=== PATIENT | female | born 1945 | race Caucasian/White ===

== ENCOUNTER → 2018-01-10 | Outpatient (CLI) | payer MEDICARE, OTHER ==
[2018-01-10 10:22] LABS: CARBON DIOXIDE 34.8 mmol/L (20.0-32)
--- NOTE | 2018-01-10 10:32 | DIREP ---
PROCEDURE:US ABDOMEN LIMITED(SINGLE ORGAN-QUAD) COMPARISON:[facility], [place], ABDOMEN SINGLE ORGAN, 11/14/2012, 11:39 AM. INDICATIONS:R94.5 ABN RESULTS OF LIVER FUNCTION STUDIES FINDINGS: CBD:1.0 cm RIGHT KIDNEY:10.6 x 4.6 x 4.5 cm SPLEEN:12.2 x 5.5 x 12.2 cm PANCREAS:The pancreas is largely obscured by bowel gas shadowing. LIVER:Diffuse increased echogenicity. No focal hepatic lesion is identified. Normal directional flow in the portal vein. GALLBLADDER:The gallbladder is surgically absent. BILIARY:There is no biliary ductal dilatation. RIGHT KIDNEY:Normal. No hydronephrosis. SPLEEN:Normal. OTHER:Negative. No ascites is identified. CONCLUSION:Prior cholecystectomy. Probable fatty liver. No other significant findings. Dictated by: VALA Physician on 01/10/2018 at 10:24 AM ld
--- NOTE | 2018-01-10 11:41 | DIREP ---
PROCEDURE:XR ABDOMEN 2 VIEWS COMPARISON:None. INDICATIONS:R10.30 LOWER ABD PAIN TECHNIQUE:Flat and upright views of the abdomen are provided. FINDINGS: BOWEL GAS PATTERN:Relatively mild mixed stool and gas throughout the colon. No dilated loops of small bowel are identified. CALCIFICATIONS:No suspicious calcifications appreciated. LUNG BASES:Grossly clear. BONES:Degenerative changes of the spine. No acute abnormality. OTHER:Apparent previous cholecystectomy. CONCLUSION: 1. Nonspecific nonobstructive bowel gas pattern. No abnormal increased fecal burden appreciated. 2. No suspicious calcifications identified. Dictated by: James Wilson M.D. On 01/10/2018 at 11:37 AM
[2018-01-11 11:20] LABS: HEP A AB, IgM Negative (Negative)
== END | disposition home or self-care (01) ==
LOC: RAD 09:39
PROVIDERS: ATTEND Nurse Practitioner Family
DX: R10.30 Lower abdominal pain, unspecified (principal); R94.5 Abnormal results of liver function studies; N18.3 Chronic kidney disease, stage 3 (moderate); M47.899 Other spondylosis, site unspecified; Z90.49 Acquired absence of other specified parts of digestive tract
CPT/HCPCS: 36415; 74019; 76705; 80053; 80074; 80076; 86318; 86592

== ENCOUNTER 2019-01-21 06:06 | Day surgery (SDC) | payer MEDICARE, OTHER ==
[2019-01-20 16:43] VITALS: BP 141/75
--- NOTE | 2019-01-20 17:40 | DIREP ---
PROCEDURE:CHEST 2 VIEWS COMPARISON:None. INDICATIONS:PRE OP HEART CATH FINDINGS: LUNGS/PLEURA:Hyperinflation and chronic interstitial changes. No infiltrate or pleural effusion. CARDIAC:Normal cardiac silhouette and normal pulmonary vascularity. Aortic arch calcifications. MEDIASTINUM:Normal. BONES:Bridging lower anterior thoracic osteophytes. OTHER:No additional findings. CONCLUSION:COPD. No acute cardiopulmonary process. Dictated by: Nicole Flores MD on 01/20/2019 at 05:38 PM
[2019-01-21] VITALS (12 sets, daily range): BP systolic 112–178; BP diastolic 52–98
[~2019-01-21] VITALS: Ht 175.3 cm; Wt 83.0 kg
[~2019-01-21 06:06] MED LIST: ACET-685 PO; AMLO5TAB10 PO; ASCO500C PO; ASPI325T14 PO; CALC-167 PO; GABA300C10 PO; GLUC1TAB90 PO; IBAN150T20 PO; LEVO50TA6 PO; LOSA50TA14 PO; METO25TA4 PO; NS 1000ML 1,000 ML ONE; PRAV40TA2 PO; SERT100T PO; VITA400C37 PO
[2019-01-21] MEDS ORDERED: MIDAZOLAM HCL 1 MG/ML VIAL ONE (06:10)
[2019-01-21] MEDS ORDERED: NS 1000ML 1,000 ML ONE (06:10)
[2019-01-21] MEDS ORDERED: SUBLIMAZE ONE (06:10)
[2019-01-21] MEDS ORDERED: HEPARIN ONE (06:10)
[2019-01-21] MEDS ORDERED: XYLOCAINE ONE (06:11)
[2019-01-21] MEDS ORDERED: PHENERGAN ONE (06:13)
[2019-01-21] MEDS ORDERED: VALIUM ONE (06:14)
[2019-01-21] MEDS: PHENERGAN PO ONE (06:16)
[2019-01-21] MEDS: VALIUM PO ONE (06:17)
[2019-01-21] MEDS: NS 1000ML 1,000 ML IV SCH (06:17)
[2019-01-21] MEDS ORDERED: ROSU10TA2 PO (08:58)
--- NOTE | 2019-01-21 12:05 | [facility] ---
DATE OF SERVICE: 01/21/2019 HEART CATH REPORT PRIMARY PHYSICIAN: Dr. Cyndi Betts. PRECATHETERIZATION DIAGNOSES: Abnormal myocardial perfusion scan with LV dilatation and 45-46% ejection fraction with no evidence of any definite hypoperfusion with history of angina, hypertension, hypertensive heart disease, on multiple [ ] hypertension. POSTCATHETERIZATION DIAGNOSES: Post cath diagnosis, left main fair size vessel, fully patent. LAD is a type 3 vessel with proximal long segment of tubular 60-65% stenosis. The first septal electronic assembler group leader has an ostial 70-80% stenosis and mid and the distal LAD is fully patent. Circumflex is a large, dominant vessel with a large obtuse marginal branch, fully patent. Right coronary artery is small, nondominant vessel, appears to be patent. Left ventricle is mildly dilated, LVEDP of 15-18 mm with mild global hypokinesis, ejection fraction 42-45%. ANESTHESIA: 2% lidocaine. PREOPERATIVE MEDICATIONS: Phenergan 50 mg p.o., Valium 2.5 mg p.o., Versed 1 mg IV, fentanyl 12.5 mcg IV. ANTICOAGULATION: Heparin 2000 units intra-arterially, 2000 units in the flush solution, 1000 units in the dye solution. Dye is Omnipaque. Total amount is 75 mL. CATHETERS: JL4 6-Omani, JR4 6-Omani, and 6-Omani angled pigtail catheter. ARTERIAL TIME: 5 minutes. FLUOROSCOPY TIME: 1.5 minutes. PROCEDURES: Left heart catheterization, bilateral selective coronary arteriography, left ventriculography via right femoral Juanita approach. Under local anesthesia, right femoral artery was punctured percutaneously by arterial needle, guide wire passed in right femoral artery, 6-Omani Cordis sheath introduced, side port of the sheath used for femoral arterial pressure monitoring. Sheath anchored with suture. Left Juanita catheter introduced over guide wire into ascending aorta left coronary artery cannulated and left coronary angiography performed in VINCENTIAN and RICHARDS projections with craniocaudal applications to visualize all branches. Left catheter exchanged for right coronary catheter and right coronary angiography performed in VINCENTIAN and RICHARDS. This catheter exchanged for 6-Omani pigtail catheter and catheter crossed the aortic valve and left ventricular LVEDP measured and LV gram performed in 30 degrees RICHARDS view with 30 mL Omnipaque dye and panning of descending aorta attempted. Patient tolerated procedure well. No complications of procedure. Angio-Seal deployed for hemostasis. HEMODYNAMICS: LVEDP is 15 mm, LV pressure is 155/15, femoral artery pressure is 155/74 with a mean of 90. No gradient across the aorta. FINAL CONCLUSION: CAD, proximal LAD tubular 65% stenosis, septal perforators, ostial 80-90% stenosis. Circumflex dominant vessel, fully patent. RCA patent, mild global hypokinesis. RECOMMENDATIONS: Hypertension, hypertensive heart disease with CAD with no suggestion of flow obstructive lesion, single vessel disease. We will continue metoprolol, losartan, amlodipine and add Crestor 10 mg once a day, aspirin 81 mg once a day and see her back in 3 months. Laxmichand MD Genet DR: RIK/bharat JOB# [id number] CC: Cyndi Betts NP
== END 2019-01-21 11:30 | disposition home or self-care (01) | DRG 303 ==
LOC: CCL 06:06
PROVIDERS: ATTEND Specialist
DX: I25.118 Atherosclerotic heart disease of native coronary artery with other forms of angina pectoris (principal); I11.0 Hypertensive heart disease with heart failure; I50.32 Chronic diastolic (congestive) heart failure; C85.90 Non-Hodgkin lymphoma, unspecified, unspecified site; E66.3 Overweight; Z68.27 Body mass index [BMI] 27.0-27.9, adult; Z79.899 Other long term (current) drug therapy; Z88.8 Allergy status to other drugs, medicaments and biological substances; Z79.82 Long term (current) use of aspirin; Z98.890 Other specified postprocedural states; Z90.710 Acquired absence of both cervix and uterus; Z90.49 Acquired absence of other specified parts of digestive tract; Z80.1 Family history of malignant neoplasm of trachea, bronchus and lung; Z80.3 Family history of malignant neoplasm of breast; Z83.3 Family history of diabetes mellitus; Z82.49 Family history of ischemic heart disease and other diseases of the circulatory system; Z82.5 Family history of asthma and other chronic lower respiratory diseases
CPT/HCPCS: 36415; 71046; 85610; 85730; 93458; 99152; 99153; C1760; C1894; J1644; J2250; J3010; J7030; Q9967